=== PATIENT | male | born 1980 | race Caucasian/White ===

== ENCOUNTER 2017-01-09 18:58 | Emergency (ER) | payer MEDICARE | END 2017-01-09 19:31 | disposition home or self-care (01) | LOC: ER 18:58 | DX: K02.9 Dental caries, unspecified (principal); K04.7 Periapical abscess without sinus; F17.210 Nicotine dependence, cigarettes, uncomplicated; Z79.899 Other long term (current) drug therapy; Z88.8 Allergy status to other drugs, medicaments and biological substances ==